=== PATIENT | female | born 1985 | race Hispanic/Latino ===

== ENCOUNTER 2017-08-27 02:29 | Observation (INO) | payer OTHER ==
[2017-08-27] MEDS ORDERED: Sodium Chloride 0.9% 1,000 ML IV STA ×3 (03:01→06:32)
[2017-08-27] MEDS ORDERED: Morphine 4 MG/ML VIAL IVP ONE (03:01)
[2017-08-27] MEDS ORDERED: Morphine 4 MG/ML VIAL ONE (03:02)
[2017-08-27 03:33] LABS: BASO # 0.1 K/uL (0.0-0.2); BASO % 0.6 % (0.0-2.0); EOS # 0.3 K/uL (0.0-0.7); EOS % 3.3 % (0.0-4.0); HEMOGLOBIN 12.2 g/dL (12.0-16.0); LYMPH # 3.6 K/uL (1.0-4.3); LYMPH % 38.3 % (20.0-40.0); MEAN CELL VOLUME 88.7 fl (81.0-99.0); MEAN CORPUSCULAR HEMOGLOBIN 29.9 pg (27.0-31.0); MEAN CORPUSCULAR HGB CONC 33.8 g/dL (33.0-37.0); MEAN PLATELET VOLUME 10.2 fl (7.2-11.7); MONO # 0.7 K/uL (0.0-0.8); MONO % 7.7 % (0.0-10.0); NEUT # 4.8 K/uL (1.8-7.0); NEUT % 50.1 % (50.0-75.0); NRBC % 0.1 % (0.0-0.0); RBC 4.09 Mil/uL (3.80-5.20); RED CELL DISTRIBUTION WIDTH 13.9 % (11.5-14.5); WHITE BLOOD COUNT 9.5 K/uL (4.8-10.8)
[2017-08-27 03:38] LABS: ALB/GLOB RATIO 1.3 (1.0-2.1); ALBUMIN 4.4 g/dL (3.5-5.0); ALT/SGPT 28 U/L (9-52); AST/SGOT 31 U/L (14-36); BLOOD UREA NITROGEN 18 mg/dl (7-17); CALCIUM 9.6 mg/dL (8.4-10.2); GFR AFRICAN-AMERICAN > 60; GFR NON-AFRICAN AMERICAN > 60; PARTIAL THROMBOPLASTIN TIME 20.2 Seconds (25.6-37.1); PROTHROMBIN TIME 11.5 Seconds (9.8-13.1)
--- NOTE | 2017-08-27 04:33 | ED PDOC ---
HPI: Abdomen Time Seen by Provider: 08/27/17 02:56 Chief Complaint (Nursing): Abdominal Pain Chief Complaint (Provider): Abdominal Pain History Per: Patient History/Exam Limitations: no limitations Onset/Duration Of Symptoms: Hrs (x 2) Additional Complaint(s): 32 year old female presents to the ED complaining of pelvic pain, onset 2 hours ago. She reports recently suffering a miscarriage in late April. Since then, her menstrual cycle became irregular with prolonged bleeding. When she suffered miscarriage she was not given Zyotec. On August 19, she was given a 5 day course of Provera by Dr. Long to try to lessen the bleeding. Patient states that today she was awoken with 10/10 sharp pain in her abdominal/ pelvic area. Denies nausea and vomiting. PMD: none provided Past Medical History Reviewed: Historical Data, Nursing Documentation, Vital Signs Vital Signs: Last Vital Signs Temp 98.2 F 08/27/17 02:50 Pulse 145 H 08/27/17 02:50 Resp 20 08/27/17 02:50 BP 87/56 L 08/27/17 02:50 Pulse Ox 99 08/27/17 04:48 - Medical History PMH: No Chronic Diseases - Surgical History Surgical History: No Surg Hx - Family History Family History: States: Unknown Family Hx - Allergies Allergies/Adverse Reactions: Allergies Allergy/AdvReac Type Severity Reaction Status Date / Time shellfish derived Allergy ANAPHYLAXIS Verified 08/27/17 02:53 Review of Systems ROS Statement: Except As Marked, All Systems Reviewed And Found Negative Gastrointestinal: Positive for: Abdominal Pain. Negative for: Nausea, Vomiting Genitourinary Female: Positive for: Pelvic Pain Physical Exam - Reviewed Nursing Documentation Reviewed: Yes Vital Signs Reviewed: Yes - Physical Exam Appears: Positive for: Non-toxic, No Acute Distress, Uncomfortable Skin: Positive for: Dry, Diaphoresis, Pallor Eye Exam: Positive for: EOMI, Normal appearance, PERRL Neck: Positive for: Normal, Painless ROM, Supple Cardiovascular/Chest: Positive for: Regular Rate, Rhythm. Negative for: Murmur Respiratory: Positive for: Normal Breath Sounds. Negative for: Respiratory Distress Gastrointestinal/Abdominal: Positive for: Tenderness (suprapubic) Back: Positive for: Normal Inspection. Negative for: L CVA Tenderness, R CVA Tenderness Extremity: Positive for: Normal ROM. Negative for: Deformity Neurologic/Psych: Positive for: Alert, Oriented. Negative for: Motor/Sensory Deficits - Laboratory Results Result Diagrams: 08/27/17 03:30 08/27/17 03:25 - ECG O2 Sat by Pulse Oximetry: 99 (RA) Pulse Ox Interpretation: Normal Medical Decision Making Medical Decision Makin:09 Impression: 32 year old female with acute pelvic pain Initial Plan: ABO/RH type Blood type and screen Beta Hcg CMP Urine preg Urine dip CBC with differentials Dilaudid 1 mg IVP Morphine 4 mg IVP Morphine 6 mg IVP Normal Saline IV Toradol 30 mg IV Transvaginal US FINDINGS: Dilated endometrial canal filled with fluid extending into the cervix measuring 7.8 x 1.9 cm. The uterus measures 7.9 x 6.5 x 5 cm The ovaries are normal. Normal flow to the ovaries. No free fluid in the cul-de- sac IMPRESSION: Fluid filled/dilated endometrium/cervical canal as described. Further evaluation recommended No intrauterine observed Labs reviewed and revealed no clinically significant abnormalities. Dr. Brown, OB risk control director, consulted and will be taking patient to OR for evacuation. Scribe Attestation: Documented by Pat Mendez, acting as a scribe for Ulises Joaquin MD. Provider Scribe Attestation: All medical record entries made by the Scribe were at my direction and personally dictated by me. I have reviewed the chart and agree that the record accurately reflects my personal performance of the history, physical exam, medical decision making, and the department course for this patient. I have also personally directed, reviewed, and agree with the discharge instructions and disposition. Disposition - Clinical Impression Clinical Impression: Acute pelvic pain - Patient ED Disposition Is Patient to be Admitted: Yes - Disposition Disposition Time: 04:32 Condition: STABLE Patient Signed Over To: Lydia Brown - Pt Status Changed To: Hospital Disposition Of: Inpatient - Admit Certification Admit to Inpatient:: After my assessment, the patient will require hospitalization for at least two midnights. This is because of the severity of symptoms shown, intensity of services needed, and/or the medical risk in this patient being treated as an outpatient. Critical Care Time - Critical Care Note Total Time (in mins): 30 Documented critical care: time excludes all time spent performing seperately billable procedures.
[2017-08-27] MEDS ORDERED: Midazolam 2 MG/2 ML VIAL ONE (08:38)
[2017-08-27] MEDS ORDERED: Propofol 10 mg/ml Inj (20 ML) ONE (08:38)
--- NOTE | 2017-08-27 08:46 | US ---
HISTORY: pelvic pain. Recent vaginal bleeding. Miscarriage in April 2017. COMPARISON: None available. TECHNIQUE: Grayscale, color Doppler and spectral evaluation the pelvis performed transabdominally and transvaginally FINDINGS: UTERUS: Measures 7.9 x 5.0 x 6.5 cm. Anteverted. Normal in size and appearance. No fibroid or other mass lesion seen. ENDOMETRIUM: Markedly dilated fluid-filled endometrial canal/cervix measuring 7.8 x 1.9 cm. CERVIX: See above. RIGHT OVARY: Measures 1.8 x 1.8 x 2.0 cm. No solid mass. Normal flow. LEFT OVARY: Measures 2.7 x 1.6 x 1.5 cm. No solid mass. Normal flow. FREE FLUID: No significant free fluid noted. OTHER FINDINGS: None. IMPRESSION: Dilated, fluid-filled endometrial/ cervical canal as described above. Clinical correlation is recommended.
[2017-08-27] MEDS ORDERED: Doxycycline 100 mg Inj IVPB ONE (08:55)
[2017-08-27] MEDS ORDERED: Doxycycline 100 mg Inj ONE (08:55)
[2017-08-27] MEDS ORDERED: Lactated Ringer's 1,000 ML IV ONE ×2 (09:09→09:50)
[2017-08-27] MEDS ORDERED: Dexamethasone 4 mg/1 ml ONE (09:10)
[2017-08-27] MEDS ORDERED: ePHEDrine 50 mg/ml Inj ONE (09:19)
[2017-08-27] MEDS ORDERED: Ferric Subsulfate Sol(60 mL) ONE (09:48)
[2017-08-27] MEDS ORDERED: ACETIC ACID 3% 30 ML LIQUID MC ONE (09:48)
[2017-08-27] MEDS ORDERED: Ferric Subsulfate Sol(60 mL) TP ONE (09:48)
--- NOTE | 2017-08-27 10:10 | CON ---
DATE: GYNECOLOGIC CONSULTATION IN THE EMERGENCY ROOM HISTORY OF PRESENT ILLNESS: This is a 32-year-old, G2, P 0-0-2-0 female who is status post spontaneous miscarriage on 05/07/2017, during which she had heavy bleeding, but then longer had any bleeding and received 5 days of Provera, starting 08/12/2017, due to amenorrhea. The patient reports that she started bleeding on 08/19/2017, she had two days of very heavy bleeding and then had a few days of normal bleeding and reports that she is still bleeding now. The patient reports that she started having cramps around 8:00 p.m. and then fell asleep and then woke up with severe pain. She does report that she had some diarrhea today. She has no appetite and points directly to her right lower quadrant that showed where she is having terrible pain. 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 PAST MEDICAL HISTORY: She is healthy. History of ADHD and history of hyperthyroid, which seems to have resolved. PAST SURGICAL HISTORY: None. OBSTETRIC HISTORY: In 2012, she had a termination. In 05/07/2017, she had spontaneous miscarriage. Of note, the patient also reports that she was recently and desires to conceive. ALLERGIES: AMOXICILLIN CAUSES HIVES. SHE IS ALSO ALLERGIC TO SHELLFISH AND RED WINE. MEDICATIONS: Adderall as needed. FAMILY HISTORY: She has maternal aunt with breast cancer. GYNECOLOGIC HISTORY: She has got first period around 18. She has long cycles and reports that her cycles are more regular, when she is exercising more. She reports that she does have history of abnormal Pap's and then as needed may be about two colposcopies. She denies any STDs' SOCIAL HISTORY: The patient reports that she drinks about a glass of alcohol at night. She smokes weed daily and she denies tobacco use and she reports that she runs as much as about 10 miles a day. She is very athletic. PHYSICAL EXAMINATION: GENERAL: The patient appears extremely uncomfortable rising about on the stretcher. VITAL SIGNS: Afebrile. Her pulse was up to 145 due to pain. HEART: Regular rate and rhythm. LUNGS: Clear to auscultation bilaterally. ABDOMEN: Tense and decreased bowel sounds. No CVA tenderness. EXTREMITIES: Nontender. No edema. PELVIC: Exam was deferred due to how much pain she was in and the patient had already received 10 mg Morphine, 30 of Toradol and one of Dilaudid during this exam. LABORATORY DATA: Her white count is normal at 9.5, hemoglobin is 12.2, and platelets are 256. Her PT and INR are normal, but her PTT is low at 20.2. Her comprehensive metabolic panel was done. Her random glucose is elevated at 137. Potassium is low at 3.2 and BUN is high at 18. Otherwise, her comprehensive metabolic panel is normal. Her beta HCG Quant is less than 2.39, which is negative. RADIOLOGIC DATA: She had an ultrasound done, which revealed fluid filled/dilated endometrium, cervical canal, as described, it is dilated endometrial canal, filled with fluid extending into the cervix measuring 7.8 cm x 1.9 cm. The uterus measured 7.9 x 6.5 x 5 cm. The ovaries are normal and normal floor of the ovary. No free fluid in the cul-de-sac. No intrauterine observed. Further evaluation is recommended. ASSESSMENT AND PLAN: This is a 32-year-old G2, P 0-0-2-0 status post miscarriage at the end of April who recently received 5 days of Provera for withdraw of bleed and is currently bleeding and in severe pain due to dilated endometrial canal filled with fluid. The ultrasound findings were discussed with the patient and her and it was decided that the patient should undergo a suction dilation and curettage. The patient is still continued to be n.p.o. Full informed consent will be given. Denice Brown MD
[2017-08-27 11:00] VITALS: O2SAT 100
[2017-08-27] MEDS ORDERED: Sodium Chloride 0.9% 1,000 ML IV SCH (11:15)
[2017-08-27 13:18] VITALS: BP 122/77; PULSE 76; RESP 20; TEMP 97.9
--- NOTE | 2017-08-28 12:23 | OP ---
PROCEDURE DATE: 08/27/2017 PREOPERATIVE DIAGNOSES: This is a 32-year-old -0-2-0 with excruciating pain with uterus filled with fluid by ultrasound, normal ovaries. POSTOPERATIVE DIAGNOSIS: Retained products of conception. PROCEDURE: Suction dilation and curettage under ultrasound guidance. SURGEON: Denice Brown MD FISHER EEL SPEAR: Dr. Gloria Montoya, she was the mining engineering technologist. TYPE OF ANESTHESIA: General anesthesia. ESTIMATED BLOOD LOSS: 100 mL. SPECIMENS: Fluid and tissue that was evacuated from the uterus. FINDINGS: Anteverted anteflexed uterus with lot of watery blood and tissue in the uterus. DESCRIPTION OF PROCEDURE: After fully informed consent was obtained, the patient was taken to the operating room where she was placed under general anesthesia. She was prepped and draped in the usual sterile fashion in dorsal lithotomy position. Examination under anesthesia revealed like anteflexed anteverted uterus. First the bladder was empty with a red rubber catheter small amount of urine. A weighted speculum was then placed in the posterior fornix of the vagina. Romano speculum was placed in the anterior wall of the vagina. A single tooth tenaculum was then placed at the anterior lip of the cervix. The uterus was initially sounded to an #18 dilator. At first the 7-curved curette was placed into the uterus and under ultrasound guidance, it was found not be able to reach toward the fundus and only to be placed only third way in and so it was decided by the mining engineering technologist's recommendation that the bladder be filled in order to straighten the canal of the uterus and so the uterus was filled with sterile saline to about 180 mL. The 7-curved curette was then placed through the cervix into the uterus and a large amount of watery blood and tissue was sucked up and was evacuated. At this time, the mining engineering technologist was explaining that there was still a lot of debris that seen that was not being removed, so we then changed using an size 8-curved curette, which again sucked up a little bit more tissue, but still the mining engineering technologist was saying that the debris was not being removed and so polyp forceps were then placed through the cervix into the canal and large amount of tissue was extracted in a single teeth with these forceps. Gentle curettage had been attempted during the case before the forceps were used to remove the remaining debris. The mining engineering technologist then said that the cavity appeared normal. At the end of the case, there was small amount of fluid left in the cavity. All instruments were then removed from the uterus. The single tooth tenaculum was removed from anterior lip of the cervix. Manual pressure was placed with ring forceps with a sponge on the forceps followed by astringent was applied for further hemostasis. All instruments were removed from the vagina. The patient tolerated the procedure well and was taken to the recovery room in stable condition. Denice Brown MD
== END 2017-08-27 15:22 | disposition home or self-care (01) ==
LOC: H.ER 02:29 → H.ERHOLD 04:18 → INTOOBSV 04:18 → H.TEL 07:30
PROVIDERS: ADMIT Obstetrics & Gynecology; ATTEND Obstetrics & Gynecology
DX: O03.4 Incomplete spontaneous abortion without complication (principal); F12.90 Cannabis use, unspecified, uncomplicated; F90.9 Attention-deficit hyperactivity disorder, unspecified type; Z88.0 Allergy status to penicillin; Z91.013 Allergy to seafood
CPT/HCPCS: 59812; 76830; 80053; 84702; 85025; 85610; 85730; 86850; 86900; 88305; 96374; G0378; J1100; J1170; J1885; J2001; J2250; J2270; J2405; J2704; J2765; J3010; J7040; J7120

== ENCOUNTER 2018-07-21 06:08 | Day surgery (SDC) | payer OTHER ==
[2018-07-18 15:50] VITALS: BMI 21.2
[2018-07-21 07:04] LABS: BASO % 0.5 % (0.0-2.0); EOS # 0.5 K/uL (0.0-0.7); EOS % 8.1 % (0.0-4.0); HEMOGLOBIN 12.3 g/dL (12.0-16.0); LYMPH # 2.4 K/uL (1.0-4.3); LYMPH % 42.6 % (20.0-40.0); MEAN CELL VOLUME 91.8 fl (81.0-99.0); MEAN CORPUSCULAR HEMOGLOBIN 30.5 pg (27.0-31.0); MEAN CORPUSCULAR HGB CONC 33.3 g/dL (33.0-37.0); MEAN PLATELET VOLUME 9.7 fl (7.2-11.7); MONO # 0.5 K/uL (0.0-0.8); MONO % 8.4 % (0.0-10.0); NEUT # 2.3 K/uL (1.8-7.0); NEUT % 40.4 % (50.0-75.0); NRBC % 0.1 % (0.0-0.0); RBC 4.02 Mil/uL (3.80-5.20); RED CELL DISTRIBUTION WIDTH 13.8 % (11.5-14.5); WHITE BLOOD COUNT 5.6 K/uL (4.8-10.8)
[2018-07-21] MEDS ORDERED: Lactated Ringer's 1,000 ML IV ONE (07:31)
[2018-07-21] MEDS ORDERED: Midazolam 2 MG/2 ML VIAL ONE (08:44)
[2018-07-21] MEDS ORDERED: Propofol 10 mg/ml Inj (20 ML) ONE (08:44)
[2018-07-21] MEDS ORDERED: Ferric Subsulfate Sol(60 mL) TP ONE (09:10)
[2018-07-21] MEDS ORDERED: Dexamethasone 4 mg/1 ml ONE (09:23)
[2018-07-21] MEDS ORDERED: Ferric Subsulfate Sol(60 mL) ONE ×2 (09:36→09:39)
[2018-07-21] MEDS ORDERED: HYDROmorphone 0.5 mg/0.5 ml ISec IVP PRN (09:53)
[2018-07-21 12:26] VITALS: BP 113/74; PULSE 64; RESP 18; TEMP 98.1; O2SAT 99
--- NOTE | 2018-07-21 20:21 | HP ---
HISTORY OF PRESENT ILLNESS: This is a 32-year-old G3, P0-0-3-0, last menstrual period, I am not sure, I have to look that up report, who is admitted today for hysteroscopic polypectomy due to a sonohysterogram revealing a 1.4 cm polyp in her endometrial lining. This SIS was done for recurrent loss. PAST MEDICAL HISTORY: Healthy. PAST SURGICAL HISTORY: D and C in 2012. The patient underwent suction D and C for retained products from SAB on 05/07/2017. MEDICATIONS: vitamins. ALLERGIES: PENICILLIN, AMOXICILLIN AND SHELLFISH. FAMILY HISTORY: Maternal grandmom diagnosed with diabetes. Maternal aunt, breast and ovarian cancer, survived, 72 years old. SOCIAL HISTORY: The patient runs daily 7 to 8 miles a day. She is . 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 She denies smoking, drinking and illicit drug use. OBSTETRICAL HISTORY: In 2012, she had a termination. In 08/2017, she underwent a suction D and C for retained products from a miscarriage she had on 05/07/2017 and then recently in 04/2018 she had an early miscarriage. GYNECOLOGICAL HISTORY: She has a history of starting the pill for no periods in college. She was leaner then, less body fat. Menstrual cycle is 28 to 32 days. She has a history of abnormal PAPs, status post colposcopy a few times. The patient denies any STDs. PHYSICAL EXAMINATION VITAL SIGNS: Afebrile. Vital signs are stable. GENERAL: The patient appears comfortable, lying in bed. ABDOMEN: Soft, nontender. EXTREMITIES: Nontender. IMAGING STUDIES: Sonohysterogram as above. ASSESSMENT AND PLAN: This is a 32-year-old G3, P0-0-3-0, who is being admitted for a hysteroscopic polypectomy for a 1.4 cm polyp seen on the sonohysterogram done for recurrent loss. Denice Brown MD
--- NOTE | 2018-07-21 23:26 | OP ---
PROCEDURE DATE: 07/21/2018 PREOPERATIVE DIAGNOSIS: This is a 32-year-old G3, P-0-0-3-0 with an endometrial polyp on 06/25/2018 on sonohysterogram with a history of recurrent loss who desires the polyp removed. POSTOPERATIVE DIAGNOSIS: This is a 32-year-old G3, P-0-0-3-0 with an endometrial polyp on 06/25/2018 on sonohysterogram with a history of recurrent loss who desires the polyp removed. SURGERY: Cervical dilation and hysteroscopic polypectomy with MyoSure LITE. SURGEON: Denice Brown MD ANESTHESIA ADMINISTERED BY: Dr. Kahn. ANESTHESIA: General anesthesia with LMA. OPERATIVE FINDINGS: Anteverted uterus. No adnexal mass is palpated. The endometrial cavity was visualized with multiple polyps. The left ostium was seen at the end of the case. COMPLICATIONS: None. BLOOD LOSS: Less than 10 mL. DEFICIT: 500 mL. DESCRIPTION OF PROCEDURE: The patient was taken to the operating room with IV running. She was placed in the dorsal supine position and placed under general anesthesia. She has been prepped and draped in usual sterile fashion in dorsal lithotomy position. Initially, a straight catheter was placed in her bladder, and there was no urine drained. A weighted speculum was then placed in the posterior fornix of the vagina. A Romano speculum was placed against the anterior wall of the vagina. Single tooth tenaculum was placed at the anterior lip of the cervix. The cervix was then gently dilated to accommodate the MyoSure scope. The MyoSure scope was placed through the cervical os and into the endometrial canal with the findings as noted above. The MyoSure LITE was then used to remove the multiple polyps that were seen throughout the cavity. At the end of the procedure, the cavity was found to be normal without any polyp. The tenaculum was then removed from the cervix. Manual pressure was placed on the tenaculum site followed by Monsel's was applied for hemostasis. All instruments were then removed from the vagina. The patient tolerated the procedure well and was awaken and taken to the recovery room in stable condition. Denice Brown MD [facility] # [id number]
== END 2018-07-21 12:15 | disposition home or self-care (01) ==
LOC: H.OPSURG 06:08
PROVIDERS: ATTEND Obstetrics & Gynecology
DX: N84.0 Polyp of corpus uteri (principal); N96 Recurrent pregnancy loss; Z83.3 Family history of diabetes mellitus; Z88.0 Allergy status to penicillin
CPT/HCPCS: 36415; 58558; 85025; 86850; 86900; 88305; J1100; J1885; J2001; J2250; J2405; J2704; J3010; J7030; J7120